=== PATIENT | male | born 2000 | race Two or more races ===

== ENCOUNTER 2021-01-02 06:29 | Emergency (ER) | payer SELFPAY ==
[~2021-01-02] VITALS: Ht 177.8 cm; Wt 63.0 kg
--- NOTE | 2021-01-02 06:43 | NUR ---
BIB [facility] FOR ATTEMPTED OVERDOSE WITH BENADRYL. PT ALERT ORIENTED X4. PT ALLEGADLY TOOK 300MG BENADRYL AT [id number]. PT STATES HE WAS ATTEMPTING TO HURT HIMSELF BECAUSE HE HAS BEEN "UNDER ALOT OF STRESS LATELY" BUT DENIES SI AT THIS TIME. DENIES PREVIOUS ATTEMPTS IN THE PAST. ONLY COMPLAINT CURRENTLY IS DROWSINESS AND MILD NASUEA DENIES C/P, SOB, OR PAIN. PATIENT PLACED ON A SURGICAL INSTRUMENTS INSPECTOR AND PULSE OX VITAL SIGNS STABLE AT THIS TIME. AWAITING MD RAMSEY.
--- NOTE | 2021-01-02 06:48 | NUR ---
Ani mitchell in [facility] - 01/02/21 at 0703 by MYRA URINE SENT TO LAB
--- NOTE | 2021-01-02 06:51 | NUR ---
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
--- NOTE | 2021-01-02 06:52 | NUR ---
EKG AT BEDSIDE
--- NOTE | 2021-01-02 07:12 | NUR ---
URINE SENT TO LAB
--- NOTE | 2021-01-02 07:12 | NUR ---
PLACED ON A 5150 HOLD FOR DTS BY CY
[2021-01-02 07:57] LABS: BASOPHILS # (AUTO) 0.1 K/uL (0.0-0.2); BASOPHILS % (AUTO) 1.2 % (0.0-2.0); EOSINOPHILS % (AUTO) 1.7 % (0.0-6.0); HEMATOCRIT 43 % (39-51); HEMOGLOBIN 15.2 g/dL (13.5-17.5); LYMPHOCYTES # (AUTO) 2.2 K/uL (0.8-4.8); LYMPHOCYTES % (AUTO) 35.8 % (20.0-44.0); MEAN CORPUSCULAR HGB CONC 35 g/dl (31.0-36.0); MEAN CORPUSCULAR VOLUME 90 fL (80-96); MONOCYTES # (AUTO) 0.4 K/uL (0.1-1.30); MONOCYTES % (AUTO) 6.9 % (2.0-12.0); NEUTROPHILS # (AUTO) 3.3 K/uL (1.8-8.9); NEUTROPHILS % (AUTO) 54.4 % (43.0-81.0); PLATELET COUNT (AUTO) 269 K/uL (150-450); RED BLOOD CELL COUNT(AUTO) 4.76 MIL/uL (4.5-6.0); WHITE BLOOD COUNT (AUTO) 6.1 K/uL (4.3-11.0)
--- NOTE | 2021-01-02 07:59 | NUR ---
PATIENT AWAKE ALERT AND ORIENTED X4, BREATHING EVEN AND UNLABORED, NO SOB NOTED. AMBULATORY WITH STEADY GAIT. CALLED SECURITY FOR WANDING. BELONGINGS WILL BE PLACED IN THE LOCKER.
--- NOTE | 2021-01-02 08:12 | NUR ---
URINE SENT TO LAB.
[2021-01-02 08:13] LABS: BILIRUBIN,URINE NEGATIVE (NEGATIVE); COLOR,URINE YELLOW (YELLOW); LEUKOCYTE ESTERASE ,URINE NEGATIVE (NEGATIVE); NITRITE, URINE NEGATIVE (NEGATIVE); PROTEIN,URINE NEGATIVE (NEGATIVE); UGLUCOSE NEGATIVE (NEGATIVE); UROBILINOGEN,URINE 0.2 EU/dL (0.2)
[2021-01-02 08:40] LABS: CALCIUM, SERUM 9.4 mg/dL (8.5-10.1); CARBON DIOXIDE 27 mmol/L (21-32); CHLORIDE 106 mmol/L (98-107); CREATININE 0.9 mg/dL (0.6-1.3); GLUCOSE 93 mg/dL (74-106); POTASSIUM 3.9 mmol/L (3.5-5.1); SODIUM SERUM 144 mmol/L (136-145); UREA NITROGEN, BLOOD 15 mg/dL (7-18)
[2021-01-02 08:49] LABS: ACETAMINOPHEN 0 ug/ml (10-30); ALANINE AMINOTRANSFERASE 39 U/L (12-78); ALBUMIN 4.5 g/dL (3.4-5.0); ALCOHOL, BLOOD < 3 mg/dL (0-0); ALKALINE PHOSPHATASE 109 U/L (46-116); ASPARTATE AMINOTRANSFERASE 38 U/L (15-37); BILIRUBIN,DIRECT 0.1 mg/dL (0.0-0.2); BILIRUBIN,TOTAL 0.5 mg/dL (0.2-1.0); TOTAL PROTEIN, SERUM 7.8 g/dL (6.4-8.2)
--- NOTE | 2021-01-02 11:50 | NUR ---
PATTI [facility] ETA: 1400.
--- NOTE | 2021-01-02 13:40 | NUR ---
PATTI AT BEDSIDE FOR EVAL.
--- NOTE | 2021-01-02 14:52 | NUR ---
PT IS MEDICALLY AND PSYCHIATRICALLY CLEARED FOR DISCHARGE. PT IS ON STABLE CONDITION. PT DENIED ANY THOUGHTS OF HARMING SELF NOR OTHERS.
--- NOTE | 2021-01-02 14:53 | NUR ---
PT IS AMBULATORY ON STEADY GAIT.
[2021-01-02 14:54] VITALS: BP 121/68
== END 2021-01-02 15:01 | disposition home or self-care (01) ==
LOC: ER 06:40
DX: T45.0X2A Poisoning by antiallergic and antiemetic drugs, intentional self-harm, initial encounter (principal); Y92.89 Other specified places as the place of occurrence of the external cause; R03.0 Elevated blood-pressure reading, without diagnosis of hypertension; Z20.822 Contact with and (suspected) exposure to COVID-19; R94.31 Abnormal electrocardiogram [ECG] [EKG]
CPT/HCPCS: 36415; 80048; 80076; 80143; 80307; 80320; 81003; 85025; 87426; 93005; 99285; C9803; G0480